=== PATIENT | female | born 1985 | race Caucasian/White ===

== ENCOUNTER → 2018-01-15 | Outpatient (REF) | payer OTHER ==
[2018-01-15 16:20] LABS: CHLAMYDIA DNA AMPLIFICATION NEGATIVE (NEGATIVE); GC DNA AMPLIFICATION NEGATIVE (NEGATIVE)
== END ==
LOC: M LAB REF 13:20
DX: N39.0 Urinary tract infection, site not specified (principal)
CPT/HCPCS: 87086

== ENCOUNTER → 2018-10-25 | Outpatient (CLI) | payer OTHER, SELFPAY ==
[~2018-10-25] MED LIST: E-Z-GAS II EFFERVESCENT PACKET (SODIUM BICARB./CITRIC ACID/SIMETHICONE) As Ordered ONE; E-Z-HD 98% w/w 340GM SUSP BTL As Ordered ONE; E-Z-PAQUE 96% w/w SUSP 176GM BTL As Ordered ONE
--- NOTE | 2018-10-25 16:46 | REP ---
UPPER GI SINGLE CONTRAST The procedure was performed under the direct supervision of Dr. Palmer. The images were reviewed with Dr. Palmer. Vacuum Extractor Operator film shows no organomegaly or pathological masses. The test gas pattern is nonspecific. There are tubal ligation clips seen in the pelvis. Liquid barium was administered in the erect and prone oblique positions. The oral and pharyngeal stages of deglutition are unremarkable. Esophageal transport is prompt and efficient and there is no esophagitis stricture mucosal ring or hiatal hernia. There is gastroesophageal reflux demonstrated to below the level of the uma. There are postsurgical changes of the stomach consistent with the patient's history of Dalila-en-Y gastric bypass. There is free flow of contrast through the stomach remnant and anastomoses. There is no evidence of gastritis neoplasm or ulcer disease. There is no evidence of stricture or obstruction. The visualized portion of the proximal small bowel appears normal in course and caliber. Impression: 1. There is gastroesophageal reflux demonstrated to below the level of the uma. 2. Postsurgical changes consistent with the patient's history of Dalila-en-Y gastric bypass. Upper GI examination within normal limits. 2.4 minutes of fluoroscopy time was utilized for this procedure. Reviewed by ELIZABETH Ramos 10/25/2018 04:18 P Electronically Signed by Flynn Palmer MD 10/25/2018 04:37 P
== END ==
LOC: M RAD 08:36
PROVIDERS: ATTEND Physician Assistant
DX: Z98.84 Bariatric surgery status (principal); K21.9 Gastro-esophageal reflux disease without esophagitis